=== PATIENT | male | born 1930 | race Caucasian/White ===

== ENCOUNTER 2016-11-20 11:51 | Emergency (ER) | payer MEDICARE, OTHER ==
[~2016-11-20] VITALS: Ht 185.4 cm; Wt 81.6 kg
[~2016-11-20 11:51] MED LIST: APIX2.5T OR; APIX5TAB OR; ATEN-60; ATOR20TA50 PO; NORPTMEDS; NUTRPAK; OXYB5TAB62 PO
[2016-11-20 12:32] VITALS: BP 131/54
[2016-11-20 13:40] LABS: Basophils # (auto) 0.1 uL; Basophils % (auto) 0.7 % (0.0-2.0); DEFINITIVE VIEW TRANSMISSION; Eosinophils # (auto) 0.9 uL; Eosinophils % (auto) 8.8 % (0.0-7.0); Hematocrit 32.8 % (41.0-53.0); Hemoglobin 10.6 g/dL (13.5-17.5); Lymphocytes # (auto) 1.2 uL; Lymphocytes % (auto) 11.6 % (10.0-50.0); Mean Corpuscular Hemoglobin 26.7 pg (28.0-32.0); Mean Corpuscular Hgb Conc. 32.5 g/dL (32.0-36.0); Mean Corpuscular Volume 82.1 fL (80.0-100.0); Mean Platelet Volume 8.5 fL (7.4-10.4); Monocytes # (auto) 1.1 uL; Monocytes % (auto) 10.1 % (0.0-12.0); Neutrophils # (auto) 7.2 uL; Neutrophils % (auto) 68.8 % (37.0-80.0); Platelet Count (auto) 356 10^3/uL (140-450); Red Cell Distribution Width 16.8 % (11.6-16.0); White Blood Cell 10.4 10^3/uL (4.4-10.8)
[2016-11-20 13:52] LABS: INR 1.04 (0.9-1.15); Prothrombin Time 10.7 sec (9.37-12.3)
[2016-11-20 14:13] LABS: Albumin 3.2 g/dL (3.4-5.0); Bilirubin, Total 0.5 mg/dL (0.2-1.0); Potassium 4.4 mmol/L (3.5-5.1); Total Protein 8.2 g/dL (6.4-8.2)
== END 2016-11-20 17:31 | disposition left against medical advice (07) ==
LOC: ER 11:51
DX: M54.9 Dorsalgia, unspecified (principal); Z53.21 Procedure and treatment not carried out due to patient leaving prior to being seen by health care provider
CPT/HCPCS: 36415; 80053; 85025; 85610; 93005

== ENCOUNTER 2016-11-21 13:58 | Emergency (ER) | payer MEDICARE, OTHER ==
[~2016-11-21] VITALS: Ht 185.4 cm; Wt 81.6 kg
[2016-11-21 16:10] VITALS: BP 145/84
== END 2016-11-21 17:37 | disposition home or self-care (01) ==
LOC: ER 13:58
DX: S20.212A Contusion of left front wall of thorax, initial encounter (principal); M54.5 Low back pain; G89.29 Other chronic pain; I48.91 Unspecified atrial fibrillation; E78.5 Hyperlipidemia, unspecified; I10 Essential (primary) hypertension; M19.90 Unspecified osteoarthritis, unspecified site; M10.9 Gout, unspecified; Z86.73 Personal history of transient ischemic attack (TIA), and cerebral infarction without residual deficits; Z95.0 Presence of cardiac pacemaker; Z86.718 Personal history of other venous thrombosis and embolism; Z88.6 Allergy status to analgesic agent; Z88.1 Allergy status to other antibiotic agents; W18.39XA Other fall on same level, initial encounter; Y93.89 Activity, other specified; Y99.8 Other external cause status; Y92.098 Other place in other non-institutional residence as the place of occurrence of the external cause
CPT/HCPCS: 71101; 93005

== ENCOUNTER → 2017-08-13 | Outpatient (CLI) | payer MEDICARE, OTHER | END | disposition home or self-care (01) | LOC: XYW 10:45 | PROVIDERS: ATTEND Internal Medicine | DX: I70.0 Atherosclerosis of aorta (principal); I08.0 Rheumatic disorders of both mitral and aortic valves; Z95.0 Presence of cardiac pacemaker | CPT/HCPCS: 93306 ==

== ENCOUNTER 2017-09-01 13:32 | Inpatient (IN) | payer MEDICARE, OTHER ==
[~2017-09-01] VITALS: Ht 182.9 cm; Wt 81.6 kg
[2017-09-01] MEDS ORDERED: SODIUM CHLORIDE 0.9% 1,000 ML IVB ONE (13:57)
[2017-09-01 14:53] LABS: Eosinophils # (auto) 0.1 uL; Hemoglobin 11.3 g/dL (13.5-17.5); Mean Corpuscular Hgb Conc. 31.6 g/dL (32.0-36.0); Mean Corpuscular Volume 83.4 fL (80.0-100.0)
[2017-09-01 14:55] LABS: Basophils # (auto) 0.1 uL; Basophils % (auto) 0.9 % (0.0-2.0); Eosinophils % (auto) 1.1 % (0.0-7.0); Hematocrit 35.8 % (41.0-53.0); Lymphocytes # (auto) 0.6 uL; Lymphocytes % (auto) 7.4 % (10.0-50.0); Mean Corpuscular Hemoglobin 26.4 pg (28.0-32.0); Monocytes # (auto) 0.8 uL; Monocytes % (auto) 10.8 % (0.0-12.0); Neutrophils # (auto) 6.2 uL; Neutrophils % (auto) 79.8 % (37.0-80.0); Platelet Count (auto) 224 10^3/uL (140-450); Red Blood Cells 4.29 10^6/uL (4.5-5.90); Red Cell Distribution Width 17.3 % (11.8-14.3); White Blood Cell 7.8 10^3/uL (4.4-10.8)
[2017-09-01 15:06] LABS: INR 1.01 (0.9-1.15); Partial Thromboplastin Time 27.6 sec (22.64-33.71)
[2017-09-01 15:15] LABS: Albumin 3.3 g/dL (3.4-5.0); Bilirubin, Total 0.5 mg/dL (0.2-1.0); Calcium 8.3 mg/dL (8.5-10.1); Lactic Acid w/Reflex 2.6 mmol/L (0.4-2.0); Magnesium 2.2 mg/dL (1.6-2.6); Potassium 4.1 mmol/L (3.5-5.1)
[2017-09-01] MEDS ORDERED: ACETAMINOPHEN 650 MG RECT SUPP PR ONE (16:00)
[2017-09-01] MEDS ORDERED: cefTRIAXone 1GM/10ml IVPUSH 10 ML IV ONE (16:00)
[2017-09-01 16:12] LABS: Urine Bacteria FEW /hpf (None Seen); Urine Blood 1+ /uL (Negative); Urine Specific Gravity 1.017 (1.001-1.035); Urine WBC 1 /hpf (0 - 3)
[2017-09-01] MEDS ORDERED: PROMETHAZINE HCL 25 MG/ML 1ML IV PRN (16:30)
[2017-09-01] MEDS ORDERED: NITROGLYCERIN 0.4 MG SL TAB SL PRN (16:30)
[2017-09-01] MEDS ORDERED: LORazepam 0.5 MG TAB PO PRN (16:30)
[2017-09-01] MEDS ORDERED: HYDROcodone-ACET 5/325MG TAB PO PRN (16:30)
[2017-09-01] MEDS ORDERED: MORPHINE SULF INJ 2 MG/ML SYRINGE 1ML IV PRN (16:30)
[2017-09-01] MEDS ORDERED: MORPHINE SULFATE 4 MG/ML SYR/VIAL IV PRN (16:30)
[2017-09-01] MEDS ORDERED: ACETAMINOPHEN 500 MG TAB PO PRN (16:30)
[2017-09-01] MEDS ORDERED: TEMAZEPAM 15 MG CAP PO PRN (16:30)
[2017-09-01] MEDS ORDERED: LACTULOSE 20Gm/30ML SOLN PO PRN (16:30)
[2017-09-01] MEDS ORDERED: ENOXAPARIN SOD 40 MG/0.4 ML SYRINGE SC SCH (16:43)
[2017-09-01] MEDS: SODIUM CHLORIDE 0.9% 1,000 ML IV SCH (16:45)
[2017-09-02] VITALS (7 sets, daily range): BP systolic 108–147; BP diastolic 57–79
[2017-09-02] MEDS: SODIUM CHLORIDE 0.9% 1,000 ML IV SCH ×2 (02:40→11:47)
[2017-09-02 09:35] LABS: Hematocrit 35.1 % (41.0-53.0); Hemoglobin 10.9 g/dL (13.5-17.5); Mean Corpuscular Hgb Conc. 31.1 g/dL (32.0-36.0); Mean Corpuscular Volume 86.8 fL (80.0-100.0); Platelet Count (auto) 159 10^3/uL (140-450); Red Blood Cells 4.05 10^6/uL (4.5-5.90); Red Cell Distribution Width 17.6 % (11.8-14.3); White Blood Cell 5.6 10^3/uL (4.4-10.8)
[2017-09-02 09:42] LABS: Band Neutrophils % (manual) 0; Basophils % (manual) 0 (0.0-2.0); Blast Cells 0; Metamyelocytes % 0; Myelocytes % 0; Promyelocytes % 0; Reactive Lymphocytes 0
[2017-09-02 09:55] LABS: Albumin 3.1 g/dL (3.4-5.0); BUN/Creatinine Ratio 22.6; Bilirubin, Total 0.4 mg/dL (0.2-1.0); Calcium 8.4 mg/dL (8.5-10.1); Potassium 3.9 mmol/L (3.5-5.1); Total Protein 7.5 g/dL (6.4-8.2)
[2017-09-02] MEDS ORDERED: ASPirin 81 mg TAB PO SCH (10:00)
[2017-09-02 10:56] LABS: Eosinophils % (manual) 2 (0-7); Lymphocytes % (manual) 13 (10.0-50.0); Monocytes % (manual) 12 (0-12)
[2017-09-02] MEDS ORDERED: AZITHROMYCIN 250 MG TAB PO ONE (11:30)
[2017-09-02] MEDS: cefTRIAXone 1GM/10ml IVPUSH 10 ML IV SCH (11:47)
[2017-09-02] MEDS: METOPROLOL TARTRATE 25 MG TAB PO SCH ×2 (12:00→21:47)
[2017-09-02] MEDS: APIXABAN 2.5 MG TAB PO SCH (21:46)
[2017-09-02] MEDS: ATORVASTATIN 20 MG TAB PO SCH (21:46)
[2017-09-03] MEDS: SODIUM CHLORIDE 0.9% 1,000 ML IV SCH (00:50)
[2017-09-03 05:00] VITALS: BP 135/70
[2017-09-03 07:13] LABS: Basophils # (auto) 0.1 uL; Eosinophils # (auto) 0.3 uL; Hematocrit 30.3 % (41.0-53.0); Mean Corpuscular Hemoglobin 26.6 pg (28.0-32.0); Platelet Count (auto) 162 10^3/uL (140-450)
[2017-09-03 07:22] LABS: Basophils % (auto) 1.1 % (0.0-2.0); Eosinophils % (auto) 6.8 % (0.0-7.0); Hemoglobin 9.8 g/dL (13.5-17.5); Lymphocytes % (auto) 21.3 % (10.0-50.0); Mean Corpuscular Hgb Conc. 32.5 g/dL (32.0-36.0); Mean Corpuscular Volume 81.7 fL (80.0-100.0); Monocytes # (auto) 0.8 uL; Monocytes % (auto) 15.6 % (0.0-12.0); Neutrophils # (auto) 2.7 uL; Neutrophils % (auto) 55.2 % (37.0-80.0); Red Blood Cells 3.71 10^6/uL (4.5-5.90); Red Cell Distribution Width 16.8 % (11.8-14.3); White Blood Cell 4.8 10^3/uL (4.4-10.8)
[2017-09-03 08:59] VITALS: BP 124/63
[2017-09-03] MEDS: cefTRIAXone 1GM/10ml IVPUSH 10 ML IV SCH (11:14)
[2017-09-03] MEDS: AZITHROMYCIN 250 MG TAB PO SCH (11:14)
[2017-09-03] MEDS: APIXABAN 2.5 MG TAB PO SCH ×2 (11:14→21:56)
[2017-09-03 11:18] LABS: Folate (Folic Acid) 13.92 ng/mL (5.38-24)
[2017-09-03 12:01] VITALS: BP 122/77
[2017-09-03 14:43] LABS: Folate (Folic Acid) 16.51 ng/mL (5.38-24)
[2017-09-03 15:58] VITALS: BP 148/74
[2017-09-03] MEDS: ATORVASTATIN 20 MG TAB PO SCH (21:56)
[2017-09-03] MEDS: METOPROLOL TARTRATE 25 MG TAB PO SCH (21:56)
[2017-09-03 23:01] VITALS: BP 139/74
[2017-09-04 06:19] VITALS: BP 147/77
[2017-09-04 07:51] VITALS: BP 172/71
[2017-09-04] MEDS: METOPROLOL TARTRATE 25 MG TAB PO SCH (09:52)
[2017-09-04] MEDS: AZITHROMYCIN 250 MG TAB PO SCH (09:52)
[2017-09-04] MEDS: APIXABAN 2.5 MG TAB PO SCH (09:52)
[2017-09-04] MEDS: cefTRIAXone 1GM/10ml IVPUSH 10 ML IV SCH (09:52)
[2017-09-04 11:40] VITALS: BP 141/62
[2017-09-04] MEDS ORDERED: DONEPEZIL HYDROCHLORIDE 5 MG TAB PO SCH (22:00)
== END 2017-09-04 13:19 | disposition home or self-care (01) | DRG 871 ==
LOC: EDBD 13:32 → ER 13:32 → TELE 13:33 → TELE-CENTR 09-02 02:26
PROVIDERS: ADMIT Internal Medicine; ATTEND Internal Medicine
DX: A41.9 Sepsis, unspecified organism (principal); G93.41 Metabolic encephalopathy; J18.9 Pneumonia, unspecified organism; D68.69 Other thrombophilia; G30.9 Alzheimer's disease, unspecified; D63.8 Anemia in other chronic diseases classified elsewhere; I48.91 Unspecified atrial fibrillation; F02.80 Dementia in other diseases classified elsewhere, unspecified severity, without behavioral disturbance, psychotic disturbance, mood disturbance, and anxiety; E78.5 Hyperlipidemia, unspecified; I70.0 Atherosclerosis of aorta; M10.9 Gout, unspecified; N18.3 Chronic kidney disease, stage 3 (moderate); N40.0 Benign prostatic hyperplasia without lower urinary tract symptoms; I13.10 Hypertensive heart and chronic kidney disease without heart failure, with stage 1 through stage 4 chronic kidney disease, or unspecified chronic kidney disease; M19.90 Unspecified osteoarthritis, unspecified site; Z95.0 Presence of cardiac pacemaker; Z86.73 Personal history of transient ischemic attack (TIA), and cerebral infarction without residual deficits; Z82.49 Family history of ischemic heart disease and other diseases of the circulatory system; Z79.82 Long term (current) use of aspirin; Z79.899 Other long term (current) drug therapy; Z89.021 Acquired absence of right finger(s)
CPT/HCPCS: 36415; 51702; 70450; 71010; 71045; 80053; 81001; 82550; 82607; 82746; 82962; 83605; 83735; 84443; 84484; 85007; 85025; 85027; 85610; 85652; 85730; 87040; 87086; 93005; 95819; 96361; 96365; 96372; 97163

== ENCOUNTER 2017-11-01 10:04 | Inpatient (IN) | payer MEDICARE, OTHER ==
[~2017-11-01] VITALS: Ht 185.4 cm; Wt 83.2 kg
[2017-11-01] MEDS ORDERED: SODIUM CHLORIDE 0.9% 1,000 ML IV ONE (10:31)
[2017-11-01 11:06] LABS: Basophils # (auto) 0.1 uL; Basophils % (auto) 1.2 % (0.0-2.0); Eosinophils # (auto) 0.3 uL; Eosinophils % (auto) 4.9 % (0.0-7.0); Hematocrit 27.7 % (41.0-53.0); Hemoglobin 8.9 g/dL (13.5-17.5); Lymphocytes # (auto) 0.8 uL; Lymphocytes % (auto) 11.4 % (10.0-50.0); Mean Corpuscular Hgb Conc. 32.2 g/dL (32.0-36.0); Mean Corpuscular Volume 80.5 fL (80.0-100.0); Monocytes # (auto) 0.8 uL; Monocytes % (auto) 11.8 % (0.0-12.0); Neutrophils # (auto) 4.9 uL; Neutrophils % (auto) 70.7 % (37.0-80.0); Nucleated Red Blood Cells % 0.1 %; Platelet Count (auto) 223 10^3/uL (140-450); Red Blood Cells 3.44 10^6/uL (4.5-5.90); Red Cell Distribution Width 17.9 % (11.8-14.3); White Blood Cell 6.9 10^3/uL (4.4-10.8)
[2017-11-01 11:08] LABS: INR 0.94 (0.9-1.15); Partial Thromboplastin Time 22.9 sec (22.64-33.71); Prothrombin Time 10.2 sec (9.37-12.3)
[2017-11-01 11:24] LABS: Alanine Aminotransferase 14 U/L (16-61); Alkaline Phosphatase 58 U/L (45-117); Anion Gap 8 (5-15); Aspartate Aminotransferase 16 U/L (15-37); BUN/Creatinine Ratio 25.9; Bilirubin, Total 0.3 mg/dL (0.2-1.0); Blood Urea Nitrogen 41 mg/dL (7-18); Calcium 8.2 mg/dL (8.5-10.1); Carbon Dioxide 22 mmol/L (21-32); Chloride 110 mmol/L (98-107); GFR African American 53 mL/min; GFR Non-African American 44 mL/min; Glucose 100 mg/dL (74-106); Potassium 4.7 mmol/L (3.5-5.1); Sodium 140 mmol/L (136-145); Total Protein 6.8 g/dL (6.4-8.2)
[2017-11-01] MEDS ORDERED: LORazepam 0.5 MG TAB PO PRN (13:15)
[2017-11-01] MEDS ORDERED: HYDROcodone-ACET 5/325MG TAB PO PRN (13:15)
[2017-11-01] MEDS ORDERED: TEMAZEPAM 15 MG CAP PO PRN (13:15)
[2017-11-01] MEDS ORDERED: LABETALOL HCL 5 MG/ML ML 20ML VIAL IV PRN (13:15)
[2017-11-01] MEDS ORDERED: LACTULOSE 20Gm/30ML SOLN PO PRN (13:15)
[2017-11-01] MEDS ORDERED: MORPHINE SULFATE 4 MG/ML SYR/VIAL IV PRN ×2 (13:15)
[2017-11-01] MEDS ORDERED: PROMETHAZINE HCL 25 MG/ML 1ML IV PRN (13:15)
[2017-11-01] MEDS ORDERED: ACETAMINOPHEN 500 MG TAB PO PRN (13:15)
[2017-11-01] MEDS ORDERED: NITROGLYCERIN 0.4 MG SL TAB SL PRN (13:15)
[2017-11-01] MEDS: SODIUM CHLORIDE 0.9% 1,000 ML IV SCH (13:28)
[2017-11-01 13:59] LABS: Folate (Folic Acid) 21.36 ng/mL (5.38-24)
[2017-11-01] MEDS: APIXABAN 2.5 MG TAB PO SCH ×2 (14:58→22:32)
[2017-11-01 16:00] VITALS: BP 121/56
[2017-11-01 20:00] VITALS: BP 137/70
[2017-11-01 22:00] VITALS: BP 137/70
[2017-11-01] MEDS ORDERED: DONEPEZIL HYDROCHLORIDE 5 MG TAB PO SCH (22:00)
[2017-11-01] MEDS ORDERED: APIXABAN 5 MG TAB PO SCH (22:00)
[2017-11-02] MEDS: SODIUM CHLORIDE 0.9% 1,000 ML IV SCH ×2 (00:37→14:15)
[2017-11-02 04:48] LABS: Urine Blood 1+ /uL (Negative); Urine WBC 76 /hpf (0 - 3)
[2017-11-02 04:52] LABS: Urine Bacteria FEW /hpf (None Seen)
[2017-11-02 05:00] VITALS: BP 161/80
[2017-11-02 07:50] VITALS: BP 151/84
[2017-11-02] MEDS ORDERED: ATORVASTATIN 20 MG TAB PO SCH (10:00)
[2017-11-02] MEDS ORDERED: ASPirin 81 mg TAB PO SCH (10:00)
[2017-11-02] MEDS ORDERED: PANTOPRAZOLE 40 MG TAB PO SCH (10:00)
[2017-11-02] MEDS ORDERED: METOPROLOL SUCCINATE XL 50 MG TAB PO SCH (10:00)
[2017-11-02] MEDS: APIXABAN 2.5 MG TAB PO SCH (10:33)
[2017-11-02 12:26] VITALS: BP 128/44
[2017-11-02 14:01] VITALS: BP 128/44
== END 2017-11-02 15:00 | disposition home or self-care (01) | DRG 71 ==
LOC: ER 10:04 → EDBD 10:04 → TELE 10:05 → TELE-WESTW 15:53
PROVIDERS: ADMIT Internal Medicine; ATTEND Internal Medicine
DX: G93.41 Metabolic encephalopathy (principal); E44.0 Moderate protein-calorie malnutrition; I48.91 Unspecified atrial fibrillation; G45.9 Transient cerebral ischemic attack, unspecified; D64.9 Anemia, unspecified; E78.00 Pure hypercholesterolemia, unspecified; E78.5 Hyperlipidemia, unspecified; E86.0 Dehydration; F03.90 Unspecified dementia, unspecified severity, without behavioral disturbance, psychotic disturbance, mood disturbance, and anxiety; F17.210 Nicotine dependence, cigarettes, uncomplicated; F41.9 Anxiety disorder, unspecified; I11.9 Hypertensive heart disease without heart failure; M10.9 Gout, unspecified; M19.90 Unspecified osteoarthritis, unspecified site; N40.0 Benign prostatic hyperplasia without lower urinary tract symptoms; Z86.73 Personal history of transient ischemic attack (TIA), and cerebral infarction without residual deficits; Z79.899 Other long term (current) drug therapy; Z82.49 Family history of ischemic heart disease and other diseases of the circulatory system; Z86.79 Personal history of other diseases of the circulatory system; Z88.2 Allergy status to sulfonamides; K59.00 Constipation, unspecified; Z88.5 Allergy status to narcotic agent; Z95.0 Presence of cardiac pacemaker
CPT/HCPCS: 36415; 70450; 71045; 80053; 81001; 82550; 82607; 82746; 83880; 84443; 84484; 85025; 85610; 85652; 85730; 93005; 96360; 97163

== ENCOUNTER 2018-02-09 08:39 | Inpatient (IN) | payer MEDICARE, OTHER ==
[~2018-02-09] VITALS: Ht 175.3 cm; Wt 78.9 kg
[2018-02-09] VITALS (8 sets, daily range): BP systolic 99–171; BP diastolic 44–91
[2018-02-09] MEDS ORDERED: SODIUM CHLORIDE 0.9% 1,000 ML IV ONE (09:00)
[2018-02-09 09:41] LABS: Basophils # (auto) 0.1 uL; Eosinophils # (auto) 0.2 uL; Mean Corpuscular Hemoglobin 19.1 pg (28.0-32.0); Monocytes # (auto) 0.8 uL; Nucleated Red Blood Cells % 0.1 %; White Blood Cell 6.6 10^3/uL (4.4-10.8)
[2018-02-09 09:43] LABS: Basophils % (auto) 1.8 % (0.0-2.0); Eosinophils % (auto) 3.4 % (0.0-7.0); Hematocrit 22.8 % (41.0-53.0); Lymphocytes % (auto) 14.7 % (10.0-50.0); Mean Corpuscular Hgb Conc. 29.2 g/dL (32.0-36.0); Mean Corpuscular Volume 65.5 fL (80.0-100.0); Monocytes % (auto) 12.1 % (0.0-12.0); Neutrophils # (auto) 4.5 uL; Platelet Count (auto) 226 10^3/uL (140-450); Red Blood Cells 3.49 10^6/uL (4.5-5.90); Red Cell Distribution Width 18.8 % (11.8-14.3)
[2018-02-09 09:44] LABS: Hemoglobin 6.7 g/dL (13.5-17.5)
[2018-02-09 09:57] LABS: INR 1.03 (0.9-1.15)
[2018-02-09 09:58] LABS: BUN/Creatinine Ratio 18.1; Calcium 8.1 mg/dL (8.5-10.1); Magnesium 2.1 mg/dL (1.6-2.6)
[2018-02-09 10:15] LABS: Bilirubin, Total 0.6 mg/dL (0.2-1.0)
[2018-02-09] MEDS ORDERED: ENOXAPARIN SOD 80 MG/0.8ML SYRINGE SC ONE (10:30)
[2018-02-09] MEDS ORDERED: ALUM & MAG HYDROX-SIMETH LIQ(MAALOX) 30 ML PO ONE (12:45)
[2018-02-09] MEDS ORDERED: MORPHINE SULF INJ 2 MG/ML SYRINGE 1ML IV PRN (12:45)
[2018-02-09] MEDS ORDERED: cefTRIAXone 1GM/10ml IVPUSH 10 ML IV ONE (12:45)
[2018-02-09] MEDS ORDERED: ACETAMINOPHEN 325 MG TAB PO PRN (12:45)
[2018-02-09] MEDS ORDERED: ZOLPIDEM TARTRATE 5 MG TAB PO PRN (12:45)
[2018-02-09] MEDS ORDERED: NITROGLYCERIN 0.4 MG SL TAB SL PRN ×2 (12:45)
[2018-02-09] MEDS ORDERED: MORPHINE SULFATE 8mg/ml INJ SDV IV PRN (12:45)
[2018-02-09] MEDS ORDERED: LORazepam 0.5 MG TAB PO PRN (12:45)
[2018-02-09] MEDS: SODIUM CHLOR 0.9% PF (SALINE LOCK) 10ML VIAL/SYR IV SCH ×2 (14:12→22:00)
[2018-02-09 15:02] LABS: % Iron Saturation 2.2 % (20-55)
[2018-02-09 16:32] LABS: Urine Bacteria NONE SEEN /hpf (None Seen); Urine Blood Negative /uL (Negative); Urine WBC 18 /hpf (0 - 3); Urine WBC Clumps PRESENT /hpf (None Seen)
[2018-02-09] MEDS: BOOST PLUS 8 ounce PO SCH (18:13)
[2018-02-09] MEDS ORDERED: FUROSEMIDE 40 MG/4 ML VIAL IV ONE (20:00)
[2018-02-09] MEDS ORDERED: POTASSIUM CHL 10% (20 MEQ/15ML) 15ml ORAL SOLN PO ONE (20:00)
[2018-02-09 22:00] LABS: Hematocrit 28.3 % (41.0-53.0); Hemoglobin 8.7 g/dL (13.5-17.5)
[2018-02-09] MEDS: ATENOLOL 25 MG TAB PO SCH (22:00)
[2018-02-09] MEDS: DONEPEZIL HYDROCHLORIDE 5 MG TAB PO SCH (22:00)
[2018-02-09] MEDS: ENALAPRIL MALEATE 2.5 MG TAB PO SCH (22:00)
[2018-02-09] MEDS: OXYBUTYNIN CHL 5 MG TAB PO SCH (22:00)
[2018-02-09] MEDS ORDERED: DONEPEZIL HYDROCHLORIDE 5 MG TAB PO SCH (22:00)
[2018-02-09] MEDS: ATORVASTATIN 20 MG TAB PO SCH (22:00)
[2018-02-10] VITALS (11 sets, daily range): BP systolic 90–141; BP diastolic 52–82
[2018-02-10 05:15] LABS: Basophils # (auto) 0.1 uL; Eosinophils # (auto) 0.3 uL; Mean Corpuscular Volume 69.1 fL (80.0-100.0); Neutrophils # (auto) 5.4 uL; White Blood Cell 7.8 10^3/uL (4.4-10.8)
[2018-02-10 05:17] LABS: Basophils % (auto) 1.3 % (0.0-2.0); Eosinophils % (auto) 3.4 % (0.0-7.0); Hemoglobin 8.5 g/dL (13.5-17.5); Lymphocytes # (auto) 1.1 uL; Lymphocytes % (auto) 13.7 % (10.0-50.0); Mean Corpuscular Hemoglobin 21.8 pg (28.0-32.0); Mean Corpuscular Hgb Conc. 31.6 g/dL (32.0-36.0); Monocytes % (auto) 12.6 % (0.0-12.0); Platelet Count (auto) 182 10^3/uL (140-450); Red Blood Cells 3.91 10^6/uL (4.5-5.90)
[2018-02-10 05:20] LABS: Red Cell Distribution Width 22.9 % (11.8-14.3)
[2018-02-10 05:37] LABS: BUN/Creatinine Ratio 16.8; Bilirubin, Total 1.3 mg/dL (0.2-1.0); Calcium 7.9 mg/dL (8.5-10.1); Magnesium 1.9 mg/dL (1.6-2.6); Potassium 3.8 mmol/L (3.5-5.1); Total Protein 6.7 g/dL (6.4-8.2)
[2018-02-10] MEDS: SODIUM CHLOR 0.9% PF (SALINE LOCK) 10ML VIAL/SYR IV SCH ×3 (06:10→23:11)
[2018-02-10] MEDS: BOOST PLUS 8 ounce PO SCH ×3 (07:44→18:00)
[2018-02-10] MEDS: cefTRIAXone 1GM/10ml IVPUSH 10 ML IV SCH (09:00)
[2018-02-10] MEDS: OXYBUTYNIN CHL 5 MG TAB PO SCH ×2 (10:00→22:00)
[2018-02-10] MEDS ORDERED: PANTOPRAZOLE 40 MG TAB PO SCH (10:00)
[2018-02-10] MEDS: DOCUSATE SOD 100 MG CAP PO SCH (10:00)
[2018-02-10] MEDS: ATENOLOL 25 MG TAB PO SCH ×2 (11:00→22:00)
[2018-02-10] MEDS: ENALAPRIL MALEATE 2.5 MG TAB PO SCH ×2 (11:00→23:12)
[2018-02-10] MEDS ORDERED: FUROSEMIDE 40 MG/4 ML VIAL IV ONE (13:00)
[2018-02-10 22:59] LABS: Hemoglobin 9.5 g/dL (13.5-17.5)
[2018-02-10] MEDS: PANTOPRAZOLE 40 MG TAB PO SCH (23:11)
[2018-02-10] MEDS: DONEPEZIL HYDROCHLORIDE 5 MG TAB PO SCH (23:12)
[2018-02-10] MEDS: ATORVASTATIN 20 MG TAB PO SCH (23:22)
[2018-02-11] VITALS (7 sets, daily range): BP systolic 98–133; BP diastolic 30–73
[2018-02-11 05:07] LABS: Basophils # (auto) 0.1 uL; Eosinophils # (auto) 0.4 uL; Hemoglobin 9.2 g/dL (13.5-17.5); Lymphocytes # (auto) 1.1 uL; Monocytes # (auto) 1.1 uL; Nucleated Red Blood Cells % 0.1 %
[2018-02-11 05:10] LABS: Basophils % (auto) 1.3 % (0.0-2.0); Eosinophils % (auto) 4.9 % (0.0-7.0); Hematocrit 28.9 % (41.0-53.0); Mean Corpuscular Hemoglobin 23.1 pg (28.0-32.0); Mean Corpuscular Hgb Conc. 31.8 g/dL (32.0-36.0); Mean Corpuscular Volume 72.7 fL (80.0-100.0); Monocytes % (auto) 14.1 % (0.0-12.0); Neutrophils % (auto) 65.7 % (37.0-80.0); Platelet Count (auto) 141 10^3/uL (140-450); Red Blood Cells 3.98 10^6/uL (4.5-5.90); White Blood Cell 7.6 10^3/uL (4.4-10.8)
[2018-02-11 05:12] LABS: Red Cell Distribution Width 25.3 % (11.8-14.3)
[2018-02-11 06:00] LABS: BUN/Creatinine Ratio 15.5; Potassium 4.1 mmol/L (3.5-5.1)
[2018-02-11] MEDS: SODIUM CHLOR 0.9% PF (SALINE LOCK) 10ML VIAL/SYR IV SCH ×3 (06:04→21:50)
[2018-02-11] MEDS: BOOST PLUS 8 ounce PO SCH ×3 (08:00→17:52)
[2018-02-11] MEDS: PANTOPRAZOLE 40 MG TAB PO SCH ×2 (09:49→21:50)
[2018-02-11] MEDS: ATENOLOL 25 MG TAB PO SCH ×2 (09:49→21:48)
[2018-02-11] MEDS: DOCUSATE SOD 100 MG CAP PO SCH (09:49)
[2018-02-11] MEDS: ENALAPRIL MALEATE 2.5 MG TAB PO SCH ×2 (09:49→21:49)
[2018-02-11] MEDS: OXYBUTYNIN CHL 5 MG TAB PO SCH ×2 (09:49→21:50)
[2018-02-11] MEDS: cefTRIAXone 1GM/10ml IVPUSH 10 ML IV SCH (09:49)
[2018-02-11] MEDS ORDERED: FLUCONAZOLE 200MG/100ML 100 ML IV ONE (13:30)
[2018-02-11] MEDS: ATORVASTATIN 20 MG TAB PO SCH (21:50)
[2018-02-11] MEDS: DONEPEZIL HYDROCHLORIDE 5 MG TAB PO SCH (21:50)
[2018-02-12 04:53] VITALS: BP 123/63
[2018-02-12 05:47] LABS: Eosinophils # (auto) 0.4 uL; Eosinophils % (auto) 4.7 % (0.0-7.0); Hemoglobin 10.1 g/dL (13.5-17.5); Lymphocytes # (auto) 0.6 uL; Monocytes # (auto) 1.1 uL; White Blood Cell 8.1 10^3/uL (4.4-10.8)
[2018-02-12 05:50] LABS: Basophils # (auto) 0.1 uL; Basophils % (auto) 0.8 % (0.0-2.0); Hematocrit 32.1 % (41.0-53.0); Lymphocytes % (auto) 7.6 % (10.0-50.0); Mean Corpuscular Hemoglobin 23.4 pg (28.0-32.0); Mean Corpuscular Hgb Conc. 31.5 g/dL (32.0-36.0); Mean Corpuscular Volume 74.1 fL (80.0-100.0); Monocytes % (auto) 13.4 % (0.0-12.0); Neutrophils % (auto) 73.5 % (37.0-80.0); Nucleated Red Blood Cells % 0.1 %; Platelet Count (auto) 134 10^3/uL (140-450); Red Blood Cells 4.32 10^6/uL (4.5-5.90)
[2018-02-12 05:57] LABS: BUN/Creatinine Ratio 16.1; Calcium 8.2 mg/dL (8.5-10.1); Potassium 4.6 mmol/L (3.5-5.1)
[2018-02-12] MEDS: SODIUM CHLOR 0.9% PF (SALINE LOCK) 10ML VIAL/SYR IV SCH ×3 (06:26→23:20)
[2018-02-12 08:27] VITALS: BP 146/78
[2018-02-12] MEDS: BOOST PLUS 8 ounce PO SCH ×3 (08:42→18:00)
[2018-02-12] MEDS: cefTRIAXone 1GM/10ml IVPUSH 10 ML IV SCH (09:51)
[2018-02-12] MEDS: ATENOLOL 25 MG TAB PO SCH ×2 (09:52→22:00)
[2018-02-12] MEDS: ENALAPRIL MALEATE 2.5 MG TAB PO SCH ×2 (09:52→22:00)
[2018-02-12] MEDS: OXYBUTYNIN CHL 5 MG TAB PO SCH ×2 (09:52→22:00)
[2018-02-12] MEDS: PANTOPRAZOLE 40 MG TAB PO SCH ×2 (09:52→22:00)
[2018-02-12] MEDS: DOCUSATE SOD 100 MG CAP PO SCH (09:53)
[2018-02-12] MEDS ORDERED: FLUCONAZOLE 200MG/100ML 100 ML IV SCH (10:00)
[2018-02-12] MEDS ORDERED: FUROSEMIDE 40 MG/4 ML VIAL IV ONE (11:00)
[2018-02-12 13:00] VITALS: BP 127/68
[2018-02-12] MEDS: ALBUTEROL SULF 2.5 MG/0.5ML(0.5%) NEB SOLN NEB SCH ×3 (14:02→22:29)
[2018-02-12 22:00] VITALS: BP 120/69
[2018-02-12] MEDS: DONEPEZIL HYDROCHLORIDE 5 MG TAB PO SCH (22:00)
[2018-02-12] MEDS: ATORVASTATIN 20 MG TAB PO SCH (22:00)
[2018-02-12 23:34] VITALS: BP 123/72
[2018-02-13] MEDS: ALBUTEROL SULF 2.5 MG/0.5ML(0.5%) NEB SOLN NEB SCH ×6 (02:15→22:27)
[2018-02-13 04:36] VITALS: BP 150/67
[2018-02-13] MEDS: SODIUM CHLOR 0.9% PF (SALINE LOCK) 10ML VIAL/SYR IV SCH ×3 (06:10→22:10)
[2018-02-13 06:27] LABS: Hemoglobin 10.1 g/dL (13.5-17.5)
[2018-02-13 06:32] LABS: Hematocrit 31.9 % (41.0-53.0)
[2018-02-13 06:42] LABS: BUN/Creatinine Ratio 18.7; Calcium 8.3 mg/dL (8.5-10.1); Potassium 3.7 mmol/L (3.5-5.1)
[2018-02-13] MEDS: BOOST PLUS 8 ounce PO SCH ×3 (08:00→18:26)
[2018-02-13 09:00] VITALS: BP 122/68
[2018-02-13] MEDS: FLUCONAZOLE 100 MG TAB PO SCH (10:00)
[2018-02-13] MEDS: DOCUSATE SOD 100 MG CAP PO SCH (10:42)
[2018-02-13] MEDS: PANTOPRAZOLE 40 MG TAB PO SCH ×2 (10:42→22:09)
[2018-02-13] MEDS: ENALAPRIL MALEATE 2.5 MG TAB PO SCH ×2 (10:43→22:09)
[2018-02-13] MEDS: OXYBUTYNIN CHL 5 MG TAB PO SCH ×2 (10:43→22:09)
[2018-02-13] MEDS: ATENOLOL 25 MG TAB PO SCH ×2 (10:44→22:09)
[2018-02-13 13:00] VITALS: BP 104/61
[2018-02-13 17:00] VITALS: BP 120/62
[2018-02-13 21:46] VITALS: BP 139/73
[2018-02-13] MEDS: DONEPEZIL HYDROCHLORIDE 5 MG TAB PO SCH (22:09)
[2018-02-13] MEDS: ATORVASTATIN 20 MG TAB PO SCH (22:09)
[2018-02-14] MEDS: ALBUTEROL SULF 2.5 MG/0.5ML(0.5%) NEB SOLN NEB SCH ×3 (02:24→10:00)
[2018-02-14 05:00] VITALS: BP 126/69
[2018-02-14] MEDS: SODIUM CHLOR 0.9% PF (SALINE LOCK) 10ML VIAL/SYR IV SCH (05:34)
[2018-02-14] MEDS: BOOST PLUS 8 ounce PO SCH (08:00)
[2018-02-14 09:00] VITALS: BP 105/56
[2018-02-14] MEDS: DOCUSATE SOD 100 MG CAP PO SCH (09:58)
[2018-02-14] MEDS: PANTOPRAZOLE 40 MG TAB PO SCH (09:59)
[2018-02-14] MEDS: FLUCONAZOLE 100 MG TAB PO SCH (09:59)
[2018-02-14] MEDS: OXYBUTYNIN CHL 5 MG TAB PO SCH (09:59)
[2018-02-14] MEDS: ATENOLOL 25 MG TAB PO SCH (10:00)
[2018-02-14] MEDS: ENALAPRIL MALEATE 2.5 MG TAB PO SCH (10:01)
[2018-02-14 11:30] VITALS: BP 110/51
== END 2018-02-14 13:00 | DRG 64 ==
LOC: ER 08:39 → EDBD 08:39 → TELE 08:40 → DOU IN ICU 02-10 23:16 → EAST 02-11 12:13 → CENTRAL 02-12 16:55
PROVIDERS: ADMIT Internal Medicine; ATTEND Internal Medicine
PROC: 5A09357 Assistance with Respiratory Ventilation, Less than 24 Consecutive Hours, Continuous Positive Airway Pressure (ICD-10-PCS; principal; 2018-02-09)
PROC: 30233N1 Transfusion of Nonautologous Red Blood Cells into Peripheral Vein, Percutaneous Approach (ICD-10-PCS; 2018-02-09)
DX: I63.9 Cerebral infarction, unspecified (principal); I21.A1 Myocardial infarction type 2; I50.43 Acute on chronic combined systolic (congestive) and diastolic (congestive) heart failure; G93.41 Metabolic encephalopathy; N17.0 Acute kidney failure with tubular necrosis; K92.2 Gastrointestinal hemorrhage, unspecified; E44.0 Moderate protein-calorie malnutrition; N39.0 Urinary tract infection, site not specified; D68.69 Other thrombophilia; I13.0 Hypertensive heart and chronic kidney disease with heart failure and stage 1 through stage 4 chronic kidney disease, or unspecified chronic kidney disease; I48.92 Unspecified atrial flutter; M19.90 Unspecified osteoarthritis, unspecified site; F03.90 Unspecified dementia, unspecified severity, without behavioral disturbance, psychotic disturbance, mood disturbance, and anxiety; E78.5 Hyperlipidemia, unspecified; M10.9 Gout, unspecified; E83.51 Hypocalcemia; D64.9 Anemia, unspecified; N18.3 Chronic kidney disease, stage 3 (moderate); I48.2 Chronic atrial fibrillation; T45.515A Adverse effect of anticoagulants, initial encounter; Y92.89 Other specified places as the place of occurrence of the external cause; I35.0 Nonrheumatic aortic (valve) stenosis; Z79.899 Other long term (current) drug therapy; Z88.5 Allergy status to narcotic agent; Z88.2 Allergy status to sulfonamides; Z68.25 Body mass index [BMI] 25.0-25.9, adult
CPT/HCPCS: 36415; 36430; 36600; 70450; 71045; 74176; 80048; 80053; 80061; 81001; 82805; 83540; 83550; 83735; 83880; 84484; 85014; 85018; 85025; 85610; 85730; 86850; 86900; 86901; 86920; 87081; 87086; 93005; 93886; 94640; 94660; 94761; 96361; 96374; 97110; 97163; 97530; J1450